=== PATIENT | female | born 1950 | race Caucasian/White ===

== ENCOUNTER → 2017-01-17 | Outpatient (CLI) | payer MEDICARE, OTHER ==
--- NOTE | 2017-01-17 19:02 | WOMENS IMAGING REPORT ---
EXAM DESCRIPTION: 3D SCREENING MAMMO BILAT COMPLETED DATE/TIME: 01/17/2017 2:42 pm REASON FOR STUDY: ROUTINE SCREENING; Z12.31 COMPARISON: No previous are available for comparison TECHNIQUE: Standard craniocaudal and mediolateral oblique views of each breast recorded using digita l acquisition and breast tomosynthesis. LIMITATIONS: None. FINDINGS: RIGHT BREAST MASSES: No suspicious masses. CALCIFICATIONS: No new or suspicious calcifications. ARCHITECTURAL DISTORTION: None. DEVELOPING DENSITY: None. ASYMMETRY: Asymmetrically dense tissue is present at the right breast 6 o'clock position for which ad ditional cone compression views, right breast 90 mediolateral view and right breast ultrasound are r ecommended for followup. OTHER: No other significant findings. LEFT BREAST MASSES: No suspicious masses. CALCIFICATIONS: No new or suspicious calcifications. ARCHITECTURAL DISTORTION: None. DEVELOPING DENSITY: None. ASYMMETRY: None noted. OTHER: No other significant findings. Read with the assistance of CAD. .[facility] - R2 Cenova Version 1.3 .[facility] Imaging - R2 Cenova Version 1.3 .[facility] - R2 Cenova Version 2.4 .[facility] - R2 Cenova Version 2.4 .[facility] - R2 Corrugator Version 9.2 IMPRESSION: No mammographic/ tomosynthesis evidence for malignancy left breast. On the right side, asymmetrically dense tissue is present at the 6 o'clock position for which additio nal diagnostic mammograms and ultrasound are required for followup BREAST DENSITY: c. The breasts are heterogeneously dense, which may obscure small masses. BIRAD: 0 Incomplete: Needs Additional Imaging Evaluation and/or prior Mammograms for Comparison. RECOMMENDATION: RECOMMENDED FOLLOW-UP: Diagnostic right breast mammograms and ultrasound The patient will be contacted for additional imaging. COMMENT: The patient has been notified of the results by letter per [place] requirements. Additional no tification policies are in place for contacting patient with suspicious or incomplete findings. Quality ID #[id number]: The [employer] recommends an annual screening mammogram for women aged 40 years or over. This facility utilizes a reminder system to ensure that all patients receive reminder letters, and/or direct phone calls for appointments. This includes reminders for routine scr eening mammograms, diagnostic mammograms, or other Breast Imaging Interventions when appropriate. Th is patient will be placed in the appropriate reminder system. The [employer] (ACR) has developed recommendations for screening MRI of the breast s in certain patient populations, to be used in conjunction with mammography. Breast MRI surveillanc e may be appropriate for women with more than 20% lifetime risk of developing breast cancer as deter mined by genetic testing, significant family history of the disease, or history of mantle radiation f or Hodgkins Disease. ACR Practice Guidelines 2008. DBT Technology DBT is a type of tomographic mammography. With conventional mammography, overlapping breast tissue ma y make lesions difficult to detect, even with good compression. DBT uses an x-ray tube that rotates a round the breast, taking images at different angles. These images are then combined to create thin sl ices of the breast that the radiologist can view as a 3D reconstruction. The [employer] unit can perform full-field digital mammograms (2D imaging); or DBT (3D imaging); or both, in a combination mode that quickly performs both the mammogram and the tomosynthesis scan while the breast is still compressed. RS 6045F: Fluoroscopic imaging is not utilized for breast tomosynthesis. TECHNICAL DOCUMENTATION: FINDING NUMBER: (1) ASSESSMENT: (1) JOB ID: [id number] [employer]- All Rights Reserved
== END ==
LOC: WI 14:21
PROVIDERS: ATTEND Nurse Practitioner
DX: Z12.31 Encounter for screening mammogram for malignant neoplasm of breast (principal)
CPT/HCPCS: 77063; G0202; 77067

== ENCOUNTER → 2017-02-07 | Outpatient (CLI) | payer MEDICARE, OTHER ==
--- NOTE | 2017-02-07 18:28 | WOMENS IMAGING REPORT ---
EXAM DESCRIPTION: RIGHT DIAGNOSTIC MAMMO W/CAD; U/S BREAST UNILAT LIMITED COMPLETED DATE/TIME: 02/07/2017 8:22 am; 02/07/2017 8:56 am REASON FOR STUDY: ABNORMAL FINDINGS; R92.2; ASYMMETRY RIGHT BREAST; R92.2 R92.2 INCONCLUSIVE MAMMOG BERT COMPARISON: 01/17/2017 TECHNIQUE: 90 mediolateral view, compression magnification craniocaudal and 90 mediolateral images of the breast recorded with digital acquisition. Additional right breast ultrasound was performed LIMITATIONS: None. FINDINGS: BREAST: Right MASSES: In the 6 o'clock position right breast, an irregularly-shaped 5 to 6 mm mammographic nodule w ith associated calcification is present, indeterminate for malignancy. CALCIFICATIONS: No new or suspicious calcifications. ARCHITECTURAL DISTORTION: None. DEVELOPING DENSITY: None. ASYMMETRY: None noted. OTHER: No other significant findings. Read with the assistance of CAD. .[facility] - R2 Cenova Version 1.3 .[facility] Imaging - R2 Cenova Version 1.3 .[facility] - R2 Cenova Version 2.4 .[facility] [place] [facility] - R2 Cenova Version 2.4 .[facility] - R2 Letter [employer] Document Examiner Version 9.2 Right breast ultrasound: Patient was scanned by both myself as well as the technologist. In the right breast 6 o'clock positi on, a 5 to 6 mm solid irregularly-shaped nodule is present with a single calcification. Is indetermi annetta for malignancy, ultrasound-guided core biopsy and post biopsy clip placement of this nodule is r ecommended. This was discussed with the patient, and she agrees to the procedure. Finding was also discussed with Ana M Alvarez, 0930 hours, 02/07/2007 IMPRESSION: A prior chest subcentimeter nodule in the right breast 6 o'clock position (lower outer q uadrant) for which ultrasound-guided core biopsy, post biopsy clip placement, and two-view mammogram is recommended. BREAST DENSITY: c. The breasts are heterogeneously dense, which may obscure small masses. BIRAD: 2 Benign findings. RECOMMENDATION: RECOMMENDED FOLLOW UP: Ultrasound-guided core biopsy right breast nodule 6 o'clock p osition SPECIFIC INTERVENTION/IMAGING/CONSULTATION RECOMMENDED:As above COMMUNICATION:These findings were discussed with the patient and she agrees to the procedure. Iam marte's primary care provider was also notified. COMMENT: The patient has been notified of the results by letter per MQSA requirements. Additional no tification policies are in place for contacting patient with suspicious or incomplete findings. Quality ID #[id number]: The [employer] recommends an annual screening mammogram for women aged 40 years or over. This facility utilizes a reminder system to ensure that all patients receive reminder letters, and/or direct phone calls for appointments. This includes reminders for routine scr eening mammograms, diagnostic mammograms, or other Breast Imaging Interventions when appropriate. Th is patient will be placed in the appropriate reminder system. The [employer] (ACR) has developed recommendations for screening MRI of the breast s in certain patient populations, to be used in conjunction with mammography. Breast MRI surveillanc e may be appropriate for women with more than 20% lifetime risk of developing breast cancer as deter mined by genetic testing, significant family history of the disease, or history of mantle radiation f or Hodgkins Disease. ACR Practice Guidelines 2008. TECHNICAL DOCUMENTATION: FINDING NUMBER: (1) ASSESSMENT: (1) JOB ID: [id number] [employer]- All Rights Reserved
--- NOTE | 2017-02-07 18:28 | WOMENS IMAGING REPORT ---
EXAM DESCRIPTION: RIGHT DIAGNOSTIC MAMMO W/CAD; U/S BREAST UNILAT LIMITED COMPLETED DATE/TIME: 02/07/2017 8:22 am; 02/07/2017 8:56 am REASON FOR STUDY: ABNORMAL FINDINGS; R92.2; ASYMMETRY RIGHT BREAST; R92.2 R92.2 INCONCLUSIVE MAMMOG BERT COMPARISON: 01/17/2017 TECHNIQUE: 90 mediolateral view, compression magnification craniocaudal and 90 mediolateral images of the breast recorded with digital acquisition. Additional right breast ultrasound was performed LIMITATIONS: None. FINDINGS: BREAST: Right MASSES: In the 6 o'clock position right breast, an irregularly-shaped 5 to 6 mm mammographic nodule w ith associated calcification is present, indeterminate for malignancy. CALCIFICATIONS: No new or suspicious calcifications. ARCHITECTURAL DISTORTION: None. DEVELOPING DENSITY: None. ASYMMETRY: None noted. OTHER: No other significant findings. Read with the assistance of CAD. .[facility] - R2 Cenova Version 1.3 .[facility] Imaging - R2 Cenova Version 1.3 .[facility] - R2 Cenova Version 2.4 .[facility] [place] - R2 Cenova Version 2.4 .[facility] - R2 Needle Setter Version 9.2 Right breast ultrasound: Patient was scanned by both myself as well as the technologist. In the right breast 6 o'clock positi on, a 5 to 6 mm solid irregularly-shaped nodule is present with a single calcification. Is indetermi annetta for malignancy, ultrasound-guided core biopsy and post biopsy clip placement of this nodule is r ecommended. This was discussed with the patient, and she agrees to the procedure. Finding was also discussed with Ana M Alvarez, 0930 hours, 02/07/2007 IMPRESSION: A prior chest subcentimeter nodule in the right breast 6 o'clock position (lower outer q uadrant) for which ultrasound-guided core biopsy, post biopsy clip placement, and two-view mammogram is recommended. BREAST DENSITY: c. The breasts are heterogeneously dense, which may obscure small masses. BIRAD: 2 Benign findings. RECOMMENDATION: RECOMMENDED FOLLOW UP: Ultrasound-guided core biopsy right breast nodule 6 o'clock p osition SPECIFIC INTERVENTION/IMAGING/CONSULTATION RECOMMENDED:As above COMMUNICATION:These findings were discussed with the patient and she agrees to the procedure. Iam marte's primary care provider was also notified. COMMENT: The patient has been notified of the results by letter per MQSA requirements. Additional no tification policies are in place for contacting patient with suspicious or incomplete findings. Quality ID #[id number]: The [employer] recommends an annual screening mammogram for women aged 40 years or over. This facility utilizes a reminder system to ensure that all patients receive reminder letters, and/or direct phone calls for appointments. This includes reminders for routine scr eening mammograms, diagnostic mammograms, or other Breast Imaging Interventions when appropriate. Th is patient will be placed in the appropriate reminder system. The [employer] (ACR) has developed recommendations for screening MRI of the breast s in certain patient populations, to be used in conjunction with mammography. Breast MRI surveillanc e may be appropriate for women with more than 20% lifetime risk of developing breast cancer as deter mined by genetic testing, significant family history of the disease, or history of mantle radiation f or Hodgkins Disease. ACR Practice Guidelines 2008. TECHNICAL DOCUMENTATION: FINDING NUMBER: (1) ASSESSMENT: (1) JOB ID: [id number] [employer]- All Rights Reserved
== END ==
LOC: WI 08:14
PROVIDERS: ATTEND Nurse Practitioner
DX: N63.13 Unspecified lump in the right breast, lower outer quadrant (principal)
CPT/HCPCS: 76642; G0206

== ENCOUNTER 2019-02-23 14:07 | Observation (INO) | payer MEDICARE, OTHER ==
[2019-02-23] MEDS ORDERED: NORMAL SALINE 1000 ML 1,000 ML IV ONE (15:14)
--- NOTE | 2019-02-23 16:32 | RADIOLOGY REPORT (SQ) ---
EXAM DESCRIPTION: CT HEAD WITHOUT COMPLETED DATE/TIME: 02/23/2019 4:22 pm REASON FOR STUDY: syncope COMPARISON: None. TECHNIQUE: Axial images acquired through the brain without intravenous contrast. Images reviewed wi th bone, brain and subdural windows. Additional sagittal and coronal reconstructions were generated. Images stored on PACS. All CT scanners at this facility use dose modulation, iterative reconstruction, and/or weight based d osing when appropriate to reduce radiation dose to as low as reasonably achievable (ALARA). [facility]: Dose Right [facility]: CareDose [facility]: Dose Right [facility]: Teradose 4D [facility]: Changers RADIATION DOSE: CT Rad equipment meets quality standard of care and radiation dose reduction techniq ues were employed. CTDIvol: 53.2 mGy. DLP: 1070 mGy-cm. mGy. LIMITATIONS: None. FINDINGS: VENTRICLES: Normal size and contour. CEREBRUM: No masses. No hemorrhage. No midline shift. No evidence for acute infarction. Normal gra y/white matter differentiation. No areas of low density in the white matter. Normal variant cavum se ptum pellucidum. CEREBELLUM: No masses. No hemorrhage. No alteration of density. No evidence for acute infarction. EXTRAAXIAL SPACES: No fluid collections. No masses. ORBITS AND GLOBE: No intra- or extraconal masses. Normal contour of globe without masses. CALVARIUM: No fracture. PARANASAL SINUSES: No fluid or mucosal thickening. SOFT TISSUES: No mass or hematoma. OTHER: No other significant finding. IMPRESSION: NORMAL BRAIN CT WITHOUT CONTRAST. EVIDENCE OF ACUTE STROKE: NO. COMMENT: Quality ID # [id number]: Final reports with documentation of one or more dose reduction techniques (e.g., Automated exposure control, adjustment of the mA and/or kV according to patient size, use of iterative reconstruction technique) TECHNICAL DOCUMENTATION: JOB ID: [id number] [employer]- All Rights Reserved Reading location - IP/workstation name: [email or web address]
[2019-02-23 16:51] LABS: ABSOLUTE LYMPHOCYTES (AUTO) 0.9 10^3/uL (0.5-4.7); ABSOLUTE MONOCYTES (AUTO) 0.6 10^3/uL (0.1-1.4); ABSOLUTE NEUT (AUTO) 7.4 10^3/uL (1.7-8.2); BASOPHILS % (AUTO) 0.4 % (0-2); EOSINOPHILS % (AUTO) 0.5 % (0-6); HEMATOCRIT 33.5 % (36.0-47.0); HEMOGLOBIN 11.6 g/dL (12.0-15.5); LYMPHOCYTES % (AUTO) 10.1 % (13-45); MEAN CORPUSCULAR HEMOGLOBIN 32.5 pg (27.0-33.4); MEAN CORPUSCULAR HGB CONC 34.7 g/dL (32.0-36.0); MEAN CORPUSCULAR VOLUME 94 fl (80-97); MONOCYTES % (AUTO) 6.8 % (3-13); PLATELET COUNT 199 10^3/uL (150-450); RED BLOOD COUNT 3.57 10^6/uL (3.72-5.28); RED CELL DISTRIBUTION WIDTH 13.8 % (11.5-14.0); SEGMENTED NEUTROPHILS % (AUTO) 82.2 % (42-78); TOTAL CELLS COUNTED % (AUTO) 100 %
[2019-02-23 17:07] LABS: ALBUMIN 3.8 g/dL (3.5-5.0); ALKALINE PHOSPHATASE 104 U/L (38-126); ANION GAP 10 (5-19); ASPARTATE AMINO TRANSFERASE 32 U/L (14-36); BILIRUBIN,DIRECT 0.1 mg/dL (0.0-0.4); BILIRUBIN,TOTAL 0.6 mg/dL (0.2-1.3); BLOOD UREA NITROGEN 22 mg/dL (7-20); CALCIUM 9.5 mg/dL (8.4-10.2); CARBON DIOXIDE 28 mmol/L (22-30); CHLORIDE 103 mmol/L (98-107); GLUCOSE 89 mg/dL (75-110); POTASSIUM 4.2 mmol/L (3.6-5.0); TOTAL PROTEIN 6.4 g/dL (6.3-8.2)
--- NOTE | 2019-02-23 18:07 | ER Document Report ---
ED Dizziness/Weakness - General Chief Complaint: Syncope Stated Complaint: DIZZINESS Time Seen by Provider: 02/23/19 14:45 Primary Care Provider: TISH FLOYD NP [Primary Care Provider] - Follow up as needed Mode of Arrival: Ambulatory Information source: Patient TRAVEL OUTSIDE OF THE [place] IN LAST 30 DAYS: No - HPI Notes: Patient complains of a syncopal episode. Patient states that today she was raking some leaves in the yard when she began to feel bad. She states that she thought maybe she was hungry so she went inside to get something to eat. She states she sat on the chair while her was getting her some food. states while he was out of the room he heard a loud noise and went in and found the patient on the floor. He said the patient was semi-conscious and remained this way for about 5 to 10 minutes. In addition he states that the patient was clammy and sweaty. Patient has no previous history of similar episodes. She states he had no chest pain or shortness of breath with this episode. The episode of altered mental status was constant while lasted. Nothing made it better or worse. It was moderate to severe. There is no known radiation of symptoms. No vomiting or diarrhea. - Related Data Allergies/Adverse Reactions: Penicillins Allergy (Verified 02/23/19 14:38) Past Medical History - General Information source: Patient - Social History Smoking Status: Never Smoker Frequency of alcohol use: None Drug Abuse: None Family History: Reviewed & Not Pertinent Patient has suicidal ideation: No Patient has homicidal ideation: No - Past Medical History Cardiac Medical History: Reports: Hx Hypercholesterolemia, Hx Hypertension Review of Systems - Review of Systems Constitutional: Malaise, Weakness. denies: Chills, Fever EENT: denies: Blurred vision, Tearing Cardiovascular: denies: Chest pain, Palpitations Respiratory: denies: Cough, Short of breath -: Yes All other systems reviewed and negative Physical Exam - Vital signs Vitals: Pulse Ox 100 02/23/19 14:27 Interpretation: Normal - General General appearance: Appears well, Alert - HEENT Head: Normocephalic, Atraumatic Eyes: Normal Pupils: PERRL - Respiratory Respiratory status: No respiratory distress Chest status: Nontender Breath sounds: Normal Chest palpation: Normal - Cardiovascular Rhythm: Regular Heart sounds: Normal auscultation Murmur: No - Abdominal Inspection: Normal Distension: No distension Bowel sounds: Normal Tenderness: Nontender Organomegaly: No organomegaly - Back Back: Normal, Nontender - Extremities General upper extremity: Normal inspection, Nontender, Normal color, Normal ROM, Normal temperature General lower extremity: Normal inspection, Nontender, Normal color, Normal ROM, Normal temperature, Normal weight bearing. No: Portillo's sign - Neurological Neuro grossly intact: Yes Cognition: Normal Orientation: AAOx4 Jasbir Coma Scale Eye Opening: Spontaneous Flaxton Coma Scale Verbal: Oriented Jasbir Coma Scale Motor: Obeys Commands Flaxton Coma Scale Total: 15 Speech: Normal Motor strength normal: LUE, RUE, LLE, RLE Sensory: Normal - Psychological Associated symptoms: Normal affect, Normal mood - Skin Skin Temperature: Warm Skin Moisture: Dry Skin Color: Normal Course - Vital Signs Vital signs: Temp Pulse Resp BP Pulse Ox 98.0 F 55 L 16 112/59 L 97 02/23/19 14:35 02/23/19 14:35 02/23/19 17:01 02/23/19 17:01 02/23/19 17:01 - Laboratory Result Diagrams: 02/23/19 16:30 02/23/19 16:30 Laboratory results interpreted by me: 02/23/19 02/23/19 16:30 16:30 RBC 3.57 L Hgb 11.6 L Hct 33.5 L Lymph % (Auto) 10.1 L Seg Neutrophils % 82.2 H BUN 22 H Est GFR (MDRD) Non-Af 57 L - Diagnostic Test Radiology reviewed: Image reviewed, Reports reviewed - EKG Interpretation by Ok EKG shows normal: Sinus rhythm Rate: Bradycardia - 57 Rhythm: NSR Partridge/QRS: LBBB Discharge - Discharge Clinical Impression: Syncope and collapse Condition: Fair Disposition: ADMITTED OBSERVATION Admitting Provider: Elana (Hospitalist) - day Unit Admitted: Telemetry Referrals: TISH FLOYD NP [Primary Care Provider] - Follow up as needed
[2019-02-23] MEDS ORDERED: ACETAMINOPHEN 325 MG TABLET PO PRN (18:22)
[2019-02-23] MEDS ORDERED: ONDANSETRON HCL INJ/PF 4 MG/2 ML SDV IV PRN (18:22)
[2019-02-23] MEDS ORDERED: ONDANSETRON 4 MG TAB.RAPDIS PO PRN (18:22)
[2019-02-23] MEDS ORDERED: OXYCODONE-ACETAMINOPHEN 5-325 MG TABLET PO PRN (18:22)
--- NOTE | 2019-02-23 18:38 | PDOC H&P ---
History of Present Illness Admission Date/PCP: 02/23/19 18:24 TISH FLOYD NP History of Present Illness: CHIARA LEAHY is a 69 year old female comes into the emergency room for a syncope episode.. Was outside raking leaves today when she came inside and felt a little "lightheaded". She went to drink some water and the next thing you know she fell out on the floor. According the who was there lasted about 10 minutes when she was unresponsive. No seizure activity. This is never happened to the patient before. She denies chest pain or shortness of breath during this episode. She states that about 5 years ago she had a stress test when she lived in [place] but she does not know the results of it. She denies previous cardiac history. Patient did complain of a slight headache prior to all of this. His other medical problems include hypertension and hyperlipidemia. Patient is awake and alert in the emergency room with no complaints. Again she has had no chest pain or shortness of breath during this episode or earlier Past Medical History Cardiac Medical History: Reports: Hyperlipidema, Hypertension Social History Smoking Status: Never Smoker - Advance Directive Resuscitation Status: Full Code Family History Family History: Reviewed & Not Pertinent Parental Family History Reviewed: No Children Family History Reviewed: No Sibling(s) Family History Reviewed.: No Medication/Allergy Allergies/Adverse Reactions: Penicillins Allergy (Verified 02/23/19 14:38) Review of Systems Constitutional: ABSENT: chills, fever(s), headache(s), weight gain, weight loss Cardiovascular: ABSENT: chest pain, dyspnea on exertion, edema, orthropnea, palpitations Respiratory: ABSENT: cough, hemoptysis Neurological: PRESENT: syncope, other - Your slight headache Psychiatric: ABSENT: anxiety, depression, homidical ideation, suicidal ideation Physical Exam Vital Signs: Temp Pulse Resp BP Pulse Ox 98.0 F 55 L 16 112/59 L 97 02/23/19 14:35 02/23/19 14:35 02/23/19 17:01 02/23/19 17:01 02/23/19 17:01 Intake & Output 02/22/19 02/23/19 02/24/19 06:59 06:59 06:59 Intake Total 1000 Balance 1000 Weight 62.9 kg General appearance: PRESENT: no acute distress, well-developed, well-nourished, other - Completely normal exam Respiratory exam: PRESENT: clear to auscultation linda. ABSENT: rales, rhonchi, wheezes Cardiovascular exam: PRESENT: RRR. ABSENT: diastolic murmur, rubs, systolic murmur Neurological exam: PRESENT: alert, awake, oriented to person, oriented to place, oriented to time, oriented to situation, CN II-XII grossly intact. ABSENT: motor sensory deficit Psychiatric exam: PRESENT: appropriate affect, normal mood. ABSENT: homicidal ideation, suicidal ideation Results Laboratory Results: 02/23/19 16:30 02/23/19 16:30 02/23/19 02/23/19 16:30 16:30 WBC 9.0 RBC 3.57 L Hgb 11.6 L Hct 33.5 L MCV 94 MCH 32.5 MCHC 34.7 RDW 13.8 Plt Count 199 Seg Neutrophils % 82.2 H Sodium 140.7 Potassium 4.2 Chloride 103 Carbon Dioxide 28 Anion Gap 10 BUN 22 H Creatinine 0.98 Est GFR ( Amer) > 60 Glucose 89 Calcium 9.5 Total Bilirubin 0.6 AST 32 Alkaline Phosphatase 104 Total Protein 6.4 Albumin 3.8 02/23/19 16:30 Troponin I < 0.012 Impressions: Head CT 02/23/19 15:14 IMPRESSION: NORMAL BRAIN CT WITHOUT CONTRAST. EVIDENCE OF ACUTE STROKE: NO. Assessment and Plan - Diagnosis (1) Hyperlipidemia Is this a current diagnosis for this admission?: Yes (2) Hypertension Is this a current diagnosis for this admission?: Yes (3) Syncope and collapse Is this a current diagnosis for this admission?: Yes - Plan Summary Summary: Will do carotid Dopplers, will do an MRI of the brain, will order troponin x3 CK-MB index x3 check a magnesium check a thyroid. Repeat EKG in the morning. I have consulted cardiology who will see the patient in the morning. Syncopal episode that lasted about 10 minutes at home today after raking leaves earlier - Time Time Spent with patient: 35 or more minutes
[2019-02-23] MEDS: ENOXAPARIN SODIUM INJ 40 MG/0.4 ML DISP.SYRIN SUBCUT SCH (19:38)
[2019-02-23 20:34] LABS: CREATINE KINASE MB 0.65 ng/mL (<4.55)
[2019-02-23 20:37] LABS: TROPONIN I < 0.012 ng/mL
--- NOTE | 2019-02-23 22:22 | RADIOLOGY REPORT (SQ) ---
MR BRAIN WITHOUT IV CONTRAST EXAM DATE: 02/23/2019 12:00 AM IT RISK ADVISOR HISTORY: Syncope. COMPARISON: None. TECHNIQUE: Multisequence, multiplanar MR imaging of the brain was performed without the administration of intravenous gadolinium. FINDINGS: Scattered areas of T2/FLAIR hyperintense foci are seen in the supratentorial white matter, likely representing chronic microvascular ischemia. There is no acute infarction, intracranial hemorrhage, extra-axial fluid collection, or mass. The brainstem, posterior fossa, and cervicomedullary junction are preserved. The intravascular flow voids are preserved. The orbits are unremarkable. No abnormality of the skull base or calvarium is seen. The paranasal sinuses are clear. IMPRESSION: 1. No acute infarct. 2. Senescent changes with chronic microvascular ischemia.
[2019-02-23] MEDS: FAMOTIDINE 20 MG TABLET PO SCH (22:24)
[2019-02-23 23:02] LABS: APPEARANCE,URINE CLEAR; BILIRUBIN,URINE NEGATIVE (NEGATIVE); COLOR,URINE YELLOW; GLUCOSE, URINE NEGATIVE (NEGATIVE); KETONES,URINE NEGATIVE (NEGATIVE); LEUKOCYTE ESTERASE,URINE NEGATIVE (NEGATIVE); NITRITE,URINE NEGATIVE (NEGATIVE); PROTEIN,URINE NEGATIVE (NEGATIVE); URINE SPECIFIC GRAVITY 1.005; UROBILINOGEN,URINE NEGATIVE mg/dL (<2.0)
--- NOTE | 2019-02-24 00:30 | EKG REPORT ---
SEVERITY:- ABNORMAL ECG - SINUS RHYTHM LEFT BUNDLE BRANCH BLOCK : Confirmed by: Anabel Serna 24-Feb-2019 00:29:56
[2019-02-24 03:11] LABS: CREATINE KINASE MB 0.63 ng/mL (<4.55)
[2019-02-24 03:21] LABS: TROPONIN I < 0.012 ng/mL
[2019-02-24] MEDS: FAMOTIDINE 20 MG TABLET PO SCH ×2 (09:56→21:14)
[2019-02-24] MEDS: ENOXAPARIN SODIUM INJ 40 MG/0.4 ML DISP.SYRIN SUBCUT SCH (09:56)
--- NOTE | 2019-02-24 10:01 | RADIOLOGY REPORT (SQ) ---
EXAM DESCRIPTION: CAROTID DOPPLER COMPLETED DATE/TIME: 02/24/2019 9:47 am REASON FOR STUDY: syncope COMPARISON: None. TECHNIQUE: Grayscale ultrasound, Doppler velocity and spectra, and color Doppler images acquired of the extra-cranial carotid and vertebral arteries. Images stored on PACS. LIMITATIONS: None. FINDINGS: RIGHT CAROTID CCA Velocities: Within normal limits. ICA Velocities Peak systolic 82 cm/s. End diastolic 26 cm/s. Proximal ICA/CCA peak systolic ratio 0.8. Spectra normal. No significant plaque. LEFT CAROTID CCA Velocities: Within normal limits. ICA Velocities Peak systolic 145 cm/s. End diastolic 38 cm/s. Proximal ICA/CCA peak systolic ratio 1.3. Spectra normal. No significant plaque. VERTEBRAL ARTERIES: Antegrade flow. Normal waveforms. SUBCLAVIAN ARTERIES: No finding. OTHER: No other significant finding. IMPRESSION: NO HEMODYNAMICALLY SIGNIFICANT STENOSIS. COMMENT: Quality ID #[id number]: Velocity criteria are extrapolated from the diameter data as defined by t jennifer Society of Radiologists in Ultrasound Consensus Conference. Radiology 2003: 229; 340-346. TECHNICAL DOCUMENTATION: JOB ID: [id number] [employer]- All Rights Reserved Reading location - IP/workstation name: [email or web address]
--- NOTE | 2019-02-24 10:58 | PDOC CONSULTATION ---
Consultation Consult Date: 02/24/19 Provider Consulted: AYAN SINGH Consult reason:: Syncope History of Present Illness Admission Date/PCP: 02/23/19 18:24 TISH FLOYD NP Patient complains of: Syncope History of Present Illness: CHIARA LEAHY is a 69 year old female With medical history significant for systemic hypertension as well as dyslipidemia who presents with an episode of syncope. Per the patient had rake some leaves and then come back to the house and was about to have a meal when she had the syncopal episode. He was a witness. He reports some inv oluntary movements on one side of the body which he remembers as the left. There is no report of foaming at the mouth or seizure type activity. She was incoherent for a while. There is reported stress test done in [place] approximately 5 years ago. Results are not available. Since admission patient's EKG was noted to have left bundle branch block. She does not endorse any chest pain. It is not clear if there is a prior EKG that demonstrates a left bundle branch block. At the time of my evaluation patient feels back to her baseline. Past Medical History Cardiac Medical History: Reports: Hyperlipidema, Hypertension Psychiatric Medical History: Denies: Depression Social History Smoking Status: Never Smoker Electronic Cigarette use?: No Hx Prescription Drug Abuse: No - Advance Directive Resuscitation Status: Full Code Family History Family History: Reviewed & Not Pertinent Parental Family History Reviewed: Yes - No pertinent family history is apparent. No familial illnesses Children Family History Reviewed: NA Sibling(s) Family History Reviewed.: NA Medication/Allergy Home Medications: Aspirin [Ecotrin 81 mg EC Tablet] 81 mg PO DAILY 02/23/19 Atorvastatin Calcium [Lipitor 40 mg Tablet] 40 mg PO DAILY 02/23/19 Losartan Potassium [Cozaar 50 mg Tablet] 50 mg PO DAILY 02/23/19 Allergies/Adverse Reactions: Penicillins Allergy (Verified 02/23/19 14:38) Review of Systems Cardiovascular: PRESENT: as per HPI, chest pain Neurological: PRESENT: as per HPI, syncope Physical Exam Vital Signs: Temp Pulse Resp BP Pulse Ox 97.8 F 72 16 132/67 H 99 02/24/19 07:14 02/24/19 07:14 02/24/19 07:14 02/24/19 07:14 02/24/19 07:14 Intake & Output 02/23/19 02/24/19 02/25/19 06:59 06:59 06:59 Intake Total 1322 Output Total 200 Balance 1122 Weight 68.8 kg General appearance: PRESENT: cooperative Head exam: PRESENT: atraumatic, normocephalic Eye exam: PRESENT: EOMI Mouth exam: PRESENT: moist Respiratory exam: PRESENT: unlabored Cardiovascular exam: PRESENT: RRR, +S1, +S2 Pulses: PRESENT: normal radial pulses GI/Abdominal exam: PRESENT: soft Rectal exam: PRESENT: deferred Neurological exam: PRESENT: alert, awake, oriented to person, oriented to place, oriented to time, oriented to situation Psychiatric exam: PRESENT: appropriate affect Skin exam: PRESENT: intact Results Laboratory Results: 02/23/19 16:30 02/23/19 16:30 02/23/19 02/23/19 02/23/19 16:30 16:30 19:54 WBC 9.0 RBC 3.57 L Hgb 11.6 L Hct 33.5 L MCV 94 MCH 32.5 MCHC 34.7 RDW 13.8 Plt Count 199 Seg Neutrophils % 82.2 H Sodium 140.7 Potassium 4.2 Chloride 103 Carbon Dioxide 28 Anion Gap 10 BUN 22 H Creatinine 0.98 Est GFR ( Amer) > 60 Glucose 89 Calcium 9.5 Total Bilirubin 0.6 AST 32 Alkaline Phosphatase 104 Total Protein 6.4 Albumin 3.8 TSH 0.21 L Urine Color Urine Appearance Urine pH Ur Specific [place] Urine Protein Urine Glucose (UA) Urine Ketones Urine Blood Urine Nitrite Ur Leukocyte Esterase Urine WBC (Auto) 02/23/19 22:42 WBC RBC Hgb Hct MCV MCH MCHC RDW Plt Count Seg Neutrophils % Sodium Potassium Chloride Carbon Dioxide Anion Gap BUN Creatinine Est GFR ( Amer) Glucose Calcium Total Bilirubin AST Alkaline Phosphatase Total Protein Albumin TSH Urine Color YELLOW Urine Appearance CLEAR Urine pH 5.0 Ur Specific [place] 1.005 Urine Protein NEGATIVE Urine Glucose (UA) NEGATIVE Urine Ketones NEGATIVE Urine Blood NEGATIVE Urine Nitrite NEGATIVE Ur Leukocyte Esterase NEGATIVE Urine WBC (Auto) 0 02/23/19 02/23/19 02/24/19 16:30 19:54 02:08 CK-MB (CK-2) 0.65 0.63 Troponin I < 0.012 < 0.012 < 0.012 EKG Comments: Lead EKG independently viewed by me shows sinus rhythm with left bundle branch block. No prior EKG for comparison. Impressions: Head MRI 02/23/19 00:00 IMPRESSION: 1. No acute infarct. 2. Senescent changes with chronic microvascular ischemia. Head CT 02/23/19 15:14 IMPRESSION: NORMAL BRAIN CT WITHOUT CONTRAST. EVIDENCE OF ACUTE STROKE: NO. Carotid Doppler Study 02/24/19 00:00 IMPRESSION: NO HEMODYNAMICALLY SIGNIFICANT STENOSIS. Assessment & Plan - Diagnosis (1) Hyperlipidemia Is this a current diagnosis for this admission?: Yes Plan: Statin (2) Hypertension Is this a current diagnosis for this admission?: Yes Plan: Avoid added salt in the diet Continue medications for systemic hypertension Patient does not appear to be volume depleted at the moment. (3) Syncope and collapse Is this a current diagnosis for this admission?: Yes Plan: Syncope of unclear etiology. No carotid stenosis is apparent 1. We will obtain transthoracic echocardiogram to exclude valvular heart disease as cause of problem. 2. Chest x-ray 3. EKG shows left bundle branch block. Given absence of chest pain and hemodynamic changes this is likely a chronic finding however there is no EKG to compare to. 4. Given presence of manifest conduction disease and syncope without any apparent reason long-term cardiac monitoring is indicated. This can be arranged as an outpatient. Presently telemetry so far has not demonstrated any bradycardia arrhythmias to account for an episode of syncope. - Notes Notes: We will check echocardiogram We will check a chest x-ray May need long-term cardiac rhythm monitoring to further evaluate for cardiac causes of syncope. EKG presently has manifest conduction disease with left bundle branch block.
[2019-02-24 11:46] LABS: CREATINE KINASE MB 0.64 ng/mL (<4.55)
[2019-02-24 11:50] LABS: TROPONIN I < 0.012 ng/mL
--- NOTE | 2019-02-24 13:00 | PDOC PROGRESS REPORT ---
Subjective Progress Note for:: 02/24/19 Subjective:: Patient is feeling well. Denies shortness of breath chest pain, cough, lightheadedness or dizziness. Reason For Visit: SYNCOPE,HYPERTENSION,HYPERLIPIDEMIA,LEFT BUNDLE Physical Exam Vital Signs: Temp Pulse Resp BP Pulse Ox 98.2 F 79 16 123/80 96 02/24/19 10:55 02/24/19 10:55 02/24/19 10:55 02/24/19 10:55 02/24/19 10:55 Intake & Output 02/23/19 02/24/19 02/25/19 06:59 06:59 06:59 Intake Total 1322 Output Total 200 Balance 1122 Weight 68.8 kg General appearance: PRESENT: no acute distress, cooperative Neck exam: ABSENT: JVD Respiratory exam: PRESENT: clear to auscultation linda, symmetrical, unlabored. ABSENT: tachypnea, wheezes Cardiovascular exam: PRESENT: RRR, +S1, +S2. ABSENT: tachycardia GI/Abdominal exam: PRESENT: normal bowel sounds, soft. ABSENT: rebound, rigid, tenderness Neurological exam: PRESENT: alert, awake, oriented to person, oriented to place, oriented to time, oriented to situation Results Laboratory Results: 02/23/19 16:30 02/23/19 16:30 02/23/19 02/23/19 02/23/19 16:30 16:30 19:54 WBC 9.0 RBC 3.57 L Hgb 11.6 L Hct 33.5 L MCV 94 MCH 32.5 MCHC 34.7 RDW 13.8 Plt Count 199 Seg Neutrophils % 82.2 H Sodium 140.7 Potassium 4.2 Chloride 103 Carbon Dioxide 28 Anion Gap 10 BUN 22 H Creatinine 0.98 Est GFR ( Amer) > 60 Glucose 89 Calcium 9.5 Magnesium Total Bilirubin 0.6 AST 32 Alkaline Phosphatase 104 Total Protein 6.4 Albumin 3.8 TSH 0.21 L Urine Color Urine Appearance Urine pH Ur Specific [place] Urine Protein Urine Glucose (UA) Urine Ketones Urine Blood Urine Nitrite Ur Leukocyte Esterase Urine WBC (Auto) 02/23/19 02/24/19 22:42 10:44 WBC RBC Hgb Hct MCV MCH MCHC RDW Plt Count Seg Neutrophils % Sodium Potassium Chloride Carbon Dioxide Anion Gap BUN Creatinine Est GFR ( Amer) Glucose Calcium Magnesium 2.2 Total Bilirubin AST Alkaline Phosphatase Total Protein Albumin TSH Urine Color YELLOW Urine Appearance CLEAR Urine pH 5.0 Ur Specific [place] 1.005 Urine Protein NEGATIVE Urine Glucose (UA) NEGATIVE Urine Ketones NEGATIVE Urine Blood NEGATIVE Urine Nitrite NEGATIVE Ur Leukocyte Esterase NEGATIVE Urine WBC (Auto) 0 02/23/19 02/23/19 02/24/19 16:30 19:54 02:08 CK-MB (CK-2) 0.65 0.63 Troponin I < 0.012 < 0.012 < 0.012 02/24/19 10:44 CK-MB (CK-2) 0.64 Troponin I < 0.012 Impressions: Head MRI 02/23/19 00:00 IMPRESSION: 1. No acute infarct. 2. Senescent changes with chronic microvascular ischemia. Head CT 02/23/19 15:14 IMPRESSION: NORMAL BRAIN CT WITHOUT CONTRAST. EVIDENCE OF ACUTE STROKE: NO. Carotid Doppler Study 02/24/19 00:00 IMPRESSION: NO HEMODYNAMICALLY SIGNIFICANT STENOSIS. Assessment and Plan - Diagnosis (1) Syncope and collapse Is this a current diagnosis for this admission?: Yes Plan: Potential culprit may have been vasovagal syncope. Also possibility for hypovolemia/dehydration versus cardiac conduction abnormality though there is no clear evidence to prove this at this time. Patient was reported to be hypotensive on the field when initially evaluated by EMS and first documented heart rate in the ER was 55 Carotid Dopplers have been negative LBBB seen on EKG likely had no consequence of current condition Head MRI was negative for any ischemic event or masses. I have placed an order for an echocardiogram to evaluate cardiac structure If echo is negative, patient will be discharged to follow-up in outpatient with Dr. Baires for a mcfp event monitor to investigate for occult arrhythmias (2) Hyperlipidemia Is this a current diagnosis for this admission?: Yes (3) Hypertension Is this a current diagnosis for this admission?: Yes Plan: I will hold off on resuming losartan as of now given blood pressures while inpatient have been acceptable (4) LBBB (left bundle branch block) Is this a current diagnosis for this admission?: Yes Plan: This is likely a chronic finding and likely unrelated to patient's syncope. Unfortunately we do not have a baseline EKG but patient has no evidence for ACS. - Time Time Spent with patient: 15-24 minutes
--- NOTE | 2019-02-24 14:17 | RADIOLOGY REPORT (SQ) ---
EXAM DESCRIPTION: CHEST SINGLE VIEW COMPLETED DATE/TIME: 02/24/2019 1:56 pm REASON FOR STUDY: syncope COMPARISON: None. EXAM PARAMETERS: NUMBER OF VIEWS: One view. TECHNIQUE: Single frontal radiographic view of the chest acquired. RADIATION DOSE: NA LIMITATIONS: None. FINDINGS: LUNGS AND PLEURA: No opacities, masses or pneumothorax. No pleural effusion. MEDIASTINUM AND HILAR STRUCTURES: No masses. Contour normal. HEART AND VASCULAR STRUCTURES: Heart normal in size. Normal vasculature. BONES: No acute findings. HARDWARE: None in the chest. OTHER: No other significant finding. IMPRESSION: NO ACUTE RADIOGRAPHIC FINDING IN THE CHEST. TECHNICAL DOCUMENTATION: JOB ID: [id number] [employer]- All Rights Reserved Reading location - IP/workstation name: [email or web address]
--- NOTE | 2019-02-24 14:26 | EKG REPORT ---
SEVERITY:- ABNORMAL ECG - SINUS RHYTHM LEFT BUNDLE BRANCH BLOCK : Confirmed by: Anabel Serna 24-Feb-2019 14:25:35
--- NOTE | 2019-02-24 18:58 | XCELERA REPORT ---
[address] [address] Transthoracic Echocardiogram Report Name: CHIARA LEAHY Age: 69 yrs Gender: Female : 1950 Patient Status: Inpatient Patient Location: [address] [place], [place] [address] Study Date: 02/24/2019 01:18 PM History: Syncope Height: 63 in Weight: 151 lb BSA: 1.7 m2 Procedure: A complete two-dimensional transthoracic echocardiogram was performed (2D, M-mode, spectral and color flow Doppler). The study was technically adequate with some images being suboptimal in quality. Reason For Study: syncope Ordering Physician: ALEJA PALOMARES Performed By: Heaven Krishnamurthy Interpretation Summary The study was technically adequate with some images being suboptimal in quality. Left ventricular systolic function is normal. The Ejection Fraction estimate is 60-65% The right ventricular systolic function is normal. There is a trace amount of mitral regurgitation There is no aortic valve stenosis There is a trace or physiologic amount of tricuspid regurgitation Doppler findings do not suggest pulmonary hypertension. There is no pericardial effusion. MMode/2D Measurements & Calculations RVDd: 2.8 cm LVIDd: 4.7 cm FS: 39.5 % Ao root diam: 2.8 cm IVSd: 0.73 cm LVIDs: 2.8 cm EDV(Teich): 100.1 ml Ao root area: 6.4 cm2 LVPWd: 0.84 cm ESV(Teich): 30.0 ml EF(Teich): 70.0 % Doppler Measurements & Calculations MV E max naseem: MV dec slope: Ao V2 max: LV V1 max P.4 cm/sec 635.1 cm/sec2 156.9 cm/sec 4.0 mmHg MV A max naseem: MV dec time: 0.17 secAo max PG: LV V1 max: 119.8 cm/sec 9.9 mmHg 100.1 cm/sec MV E/A: 0.92 PA V2 max: 93.7 cm/sec PA max P.5 mmHg Left Ventricle The left ventricle is normal in size. There is normal left ventricular wall thickness. Left ventricular systolic function is normal. The Ejection Fraction estimate is 60-65%. Doppler measurements suggest impaired left ventricular relaxation, which is associated with grade I/IV or mild diastolic dysfunction. Septal motion is consistent with conduction abnormality. Right Ventricle The right ventricle is normal in size and function. The right ventricular systolic function is normal. Atria The right atrium is normal. The left atrium is borderline dilated. The interatrial septum is intact with no evidence for an atrial septal defect. Mitral Valve The mitral valve is grossly normal. There is no mitral valve stenosis. There is a trace amount of mitral regurgitation. Aortic Valve The aortic valve is sclerotic, but shows no functional abnormality. The aortic valve is trileaflet. The aortic valve opens well. There is no aortic valve stenosis. No aortic regurgitation is present. Tricuspid Valve The tricuspid valve is normal in structure and function. There is no tricuspid stenosis. There is a trace or physiologic amount of tricuspid regurgitation. Doppler findings do not suggest pulmonary hypertension. Pulmonic Valve The pulmonic valve is not well visualized. There is a trace or physiologic amount of pulmonic regurgitation. Great Vessels The aortic root is normal size. Effusions There is no pericardial effusion. : ALEJA PALOMARES Anil
[2019-02-25 08:29] VITALS: BP 107/66
--- NOTE | 2019-02-25 10:34 | PDOC DISCHARGE SUMMARY ---
Impression - Admit/DC Date/PCP Admission Date/Primary Care Provider: 02/23/19 18:24 TISH FLOYD NP Discharge Date: 02/25/19 - Discharge Diagnosis (1) Syncope and collapse Is this a current diagnosis for this admission?: Yes (2) Hyperlipidemia Is this a current diagnosis for this admission?: Yes (3) Hypertension Is this a current diagnosis for this admission?: Yes (4) LBBB (left bundle branch block) Is this a current diagnosis for this admission?: Yes - Assessment Summary: Patient was admitted for evaluation of syncope. She had presented after experiencing a 10-minute episode of syncope preceded by lightheadedness and associated with diaphoresis. At the time patient was raking leaves in her lawn. It was witnessed by her . Patient reports that when the ambulance arrived her blood pressure was in the 80s systolic. On arrival in the ER, her heart rate was noted to be 57. EKG revealed left bundle branch block. Unfortunately there was no prior EKGs for comparison. Patient did not endorse any chest pain or shortness of breath or any symptoms suspicious of ACS. Troponins were negative. MRI of the brain was performed which showed no evidence of stroke or acute findings. Patient was placed on a snack steward which showed no evidence of arrhythmia. Carotid ultrasound was performed which showed patent blood vessels with no significant stenosis. Cardiology was also involved in the case and patient was seen by Dr. Jarod Baires. As part of patient's evaluation, patient had an echocardiogram performed which showed no evidence of valvular or significant structural disease. Patient has been asymptomatic throughout his stay. At this point, though not fully clear as to what caused her syncopal episode but the leading suspicion is vasovagal syncope especially evidenced by her low blood pressure and low heart rate on initial presentation. Patient has been instructed to be aware of preceding symptoms and to lay down flat with her legs elevated if she starts to experience this preceding symptoms. Dr. Baires has evaluated patient and feels that she would need a follow-up for heart rate monitoring and possible loop recorder in the outpatient clinic to investigate for any occult's bradycardia arrhythmias or other arrhythmias that could precipitate such symptoms. Patient's blood pressure medication losartan has been held as blood pressures have been normal while in the hospital off losartan especially in light of her hypotension on initial presentation. She has been instructed that she can reduce taking half a pill of the 50 mg daily if her blood pressure should start to exceed 140/90 and that she should follow-up with her primary care physician regarding when to resume this. - Additional Information Resuscitation Status: Full Code Discharge Diet: Regular Discharge Activity: Activity As Tolerated Referrals: TISH FLOYD NP [Primary Care Provider] - Follow up as needed (LEFT MESSAGE WITH PROVIDER WITH THE PATIENTS INFO FOR FOLLOW UP APPT) Home Medications: Aspirin [Ecotrin 81 mg EC Tablet] 81 mg PO DAILY 02/23/19 Atorvastatin Calcium [Lipitor 40 mg Tablet] 40 mg PO DAILY 02/23/19 History of Present Illiness History of Present Illness: CIHARA LEAHY is a 69 year old female comes into the emergency room for a syncope episode.. Was outside raking leaves today when she came inside and felt a little "lightheaded". She went to drink some water and the next thing you know she fell out on the floor. According the who was there lasted about 10 minutes when she was unresponsive. No seizure activity. This is never happened to the patient before. She denies chest pain or shortness of breath during this episode. She states that about 5 years ago she had a stress test when she lived in [place] but she does not know the results of it. She denies previous cardiac history. Patient did complain of a slight headache prior to all of this. His other medical problems include hypertension and hyperlipidemia. Patient is awake and alert in the emergency room with no complaints. Again she has had no chest pain or shortness of breath during this episode or earlier Physical Exam Vital Signs: Temp Pulse Resp BP Pulse Ox 98.1 F 73 16 107/66 98 02/25/19 08:27 02/25/19 08:27 02/25/19 08:27 02/25/19 08:27 02/25/19 08:27 Intake & Output 02/24/19 02/25/19 02/26/19 06:59 06:59 06:59 Intake Total 1322 698 Output Total 200 Balance 1122 698 Weight 68.8 kg 67.1 kg General appearance: PRESENT: no acute distress, cooperative Neck exam: ABSENT: JVD Respiratory exam: PRESENT: clear to auscultation linda Cardiovascular exam: PRESENT: RRR, +S1, +S2. ABSENT: diastolic murmur, systolic murmur, tachycardia Musculoskeletal exam: PRESENT: ambulatory Neurological exam: PRESENT: alert, awake. ABSENT: altered Results Laboratory Results: WBC 9.0 10^3/uL (4.0-10.5) 02/23/19 16:30 RBC 3.57 10^6/uL (3.72-5.28) L 02/23/19 16:30 Hgb 11.6 g/dL (12.0-15.5) L 02/23/19 16:30 Hct 33.5 % (36.0-47.0) L 02/23/19 16:30 MCV 94 fl (80-97) 02/23/19 16:30 MCH 32.5 pg (27.0-33.4) 02/23/19 16:30 MCHC 34.7 g/dL (32.0-36.0) 02/23/19 16:30 RDW 13.8 % (11.5-14.0) 02/23/19 16:30 Plt Count 199 10^3/uL (150-450) 02/23/19 16:30 Lymph % (Auto) 10.1 % (13-45) L 02/23/19 16:30 [place] % (Auto) 6.8 % (3-13) 02/23/19 16:30 Eos % (Auto) 0.5 % (0-6) 02/23/19 16:30 Baso % (Auto) 0.4 % (0-2) 02/23/19 16:30 Absolute Neuts (auto) 7.4 10^3/uL (1.7-8.2) 02/23/19 16:30 Absolute Lymphs (auto) 0.9 10^3/uL (0.5-4.7) 02/23/19 16:30 Absolute Monos (auto) 0.6 10^3/uL (0.1-1.4) 02/23/19 16:30 Absolute Eos (auto) 0.0 10^3/uL (0.0-0.6) 02/23/19 16:30 Absolute Basos (auto) 0.0 10^3/uL (0.0-0.2) 02/23/19 16:30 Seg Neutrophils % 82.2 % (42-78) H 02/23/19 16:30 Sodium 140.7 mmol/L (137-145) 02/23/19 16:30 Potassium 4.2 mmol/L (3.6-5.0) 02/23/19 16:30 Chloride 103 mmol/L (98-107) 02/23/19 16:30 Carbon Dioxide 28 mmol/L (22-30) 02/23/19 16:30 Anion Gap 10 (5-19) 02/23/19 16:30 BUN 22 mg/dL (7-20) H 02/23/19 16:30 Creatinine 0.98 mg/dL (0.52-1.25) 02/23/19 16:30 Est GFR ( Amer) > 60 (>60) 02/23/19 16:30 Est GFR (MDRD) Non-Af 57 (>60) L 02/23/19 16:30 Glucose 89 mg/dL (75-110) 02/23/19 16:30 Calcium 9.5 mg/dL (8.4-10.2) 02/23/19 16:30 Magnesium 2.2 mg/dL (1.6-2.3) 02/24/19 10:44 Total Bilirubin 0.6 mg/dL (0.2-1.3) 02/23/19 16:30 Direct Bilirubin 0.1 mg/dL (0.0-0.4) 02/23/19 16:30 Neonat Total Bilirubin Not Reportable 02/23/19 16:30 Neonat Direct Bilirubin Not Reportable 02/23/19 16:30 Neonat Indirect Bili Not Reportable 02/23/19 16:30 AST 32 U/L (14-36) 02/23/19 16:30 ALT 35 U/L (<35) 02/23/19 16:30 Alkaline Phosphatase 104 U/L (38-126) 02/23/19 16:30 CK-MB (CK-2) 0.64 ng/mL (<4.55) 02/24/19 10:44 Troponin I < 0.012 ng/mL 02/24/19 10:44 Total Protein 6.4 g/dL (6.3-8.2) 02/23/19 16:30 Albumin 3.8 g/dL (3.5-5.0) 02/23/19 16:30 TSH 0.21 uIU/mL (0.47-4.68) L 02/23/19 19:54 Urine Color YELLOW 02/23/19 22:42 Urine Appearance CLEAR 02/23/19 22:42 Urine pH 5.0 (5.0-9.0) 02/23/19 22:42 Ur Specific [place] 1.005 02/23/19 22:42 Urine Protein NEGATIVE mg/dL (NEGATIVE) 02/23/19 22:42 Urine Glucose (UA) NEGATIVE mg/dL (NEGATIVE) 02/23/19 22:42 Urine Ketones NEGATIVE mg/dL (NEGATIVE) 02/23/19 22:42 Urine Blood NEGATIVE (NEGATIVE) 02/23/19 22:42 Urine Nitrite NEGATIVE (NEGATIVE) 02/23/19 22:42 Urine Bilirubin NEGATIVE (NEGATIVE) 02/23/19 22:42 Urine Urobilinogen NEGATIVE mg/dL (<2.0) 02/23/19 22:42 Ur Leukocyte Esterase NEGATIVE (NEGATIVE) 02/23/19 22:42 Urine WBC (Auto) 0 /HPF 02/23/19 22:42 Squamous Epi Cells Auto <1 /HPF 02/23/19 22:42 Urine Mucus (Auto) RARE /LPF 02/23/19 22:42 Urine Ascorbic Acid NEGATIVE (NEGATIVE) 02/23/19 22:42 02/23/19 02/23/19 02/24/19 16:30 19:54 02:08 CK-MB (CK-2) 0.65 0.63 Troponin I < 0.012 < 0.012 < 0.012 02/24/19 10:44 CK-MB (CK-2) 0.64 Troponin I < 0.012 Impressions: Head MRI 02/23/19 00:00 IMPRESSION: 1. No acute infarct. 2. Senescent changes with chronic microvascular ischemia. Head CT 02/23/19 15:14 IMPRESSION: NORMAL BRAIN CT WITHOUT CONTRAST. EVIDENCE OF ACUTE STROKE: NO. Carotid Doppler Study 02/24/19 00:00 IMPRESSION: NO HEMODYNAMICALLY SIGNIFICANT STENOSIS. Chest X-Ray 02/24/19 00:00 IMPRESSION: NO ACUTE RADIOGRAPHIC FINDING IN THE CHEST. Plan Time Spent: Less than 30 Minutes Stroke Is this a Stroke Patient?: No Acute Heart Failure - Is this a Heart Failure Patient?: No
== END 2019-02-25 09:00 | disposition home or self-care (01) ==
LOC: ER 14:07 → EH 18:24 → 4N 20:05
PROVIDERS: ADMIT Family Medicine; ATTEND Family Medicine
DX: R55 Syncope and collapse (principal); E78.5 Hyperlipidemia, unspecified; I10 Essential (primary) hypertension; I44.7 Left bundle-branch block, unspecified; I95.9 Hypotension, unspecified; R51 Headache; R00.1 Bradycardia, unspecified; Z79.899 Other long term (current) drug therapy; Z79.82 Long term (current) use of aspirin
CPT/HCPCS: 93005 ×2; 99285; 96372; 96360; 36415 ×2; 82553 ×2; 83735; 84443; 85025; 80053; 81001; 84484 ×2; 93306; 93880; 70551; 71045; 70450; 93010 ×2; G0378 ×3; A9270 ×2; J1650 ×2; J7030

== ENCOUNTER 2019-12-12 17:58 | Emergency (ER) | payer MEDICARE, OTHER ==
[2019-12-12] MEDS ORDERED: DOXYCYCLINE HYCLATE 100 MG TABLET PO ONE (18:27)
[2019-12-12] MEDS ORDERED: METRONIDAZOLE 500 MG TABLET PO ONE (18:28)
[2019-12-12] MEDS ORDERED: LIDOCAINE 1%/EPINEPHRINE INJ 20 ML VIAL INJ ONE (18:29)
--- NOTE | 2019-12-12 18:40 | ER Document Report ---
ED Animal Bite - General Chief Complaint: Dog Bite Stated Complaint: HAND INJURY Time Seen by Provider: 12/12/19 18:07 Primary Care Provider: TISH FLOYD NP [Primary Care Provider] - Follow up as needed Notes: HPI: Patient is a 69-year-old female that was bit by her daughter's dog. This happened prior to arrival. Patient was bit to the right humerus, forearm, and hand. Tetanus is up-to-date. Patient is allergic to amoxicillin. Patient denies any pain or injury to any other location. EMS stated they provided fentanyl which then caused the patient to drop her blood pressure. They then provided to push dose epinephrine dosages. Patient did not lose consciousness and had no chest pain. Blood pressure as recorded here. ROS: See HPI All other systems have been reviewed and are otherwise negative Reviewed vital signs and nursing note as charted by RN. PHYSICAL EXAM: CONSTITUTIONAL: Alert and oriented and responds appropriately to questions. Well-appearing; well-nourished HEAD: Normocephalic; atraumatic CARD: Regular rate and rhythm; no murmurs; symmetric distal pulses RESP: Normal chest excursion without splinting or tachypnea; breath sounds clear and equal bilaterally; no wheezes, no rhonchi, no rales ABD/GI: Normal bowel sounds; non-distended; soft, non-tender BACK: The back appears normal and is non-tender to palpation EXT: Patient has a small laceration to the dorsal aspect of the right hand. Lacerations also present with puncture bite wounds to the forearm and humerus. No obvious swelling or discharge currently SKIN: See above NEURO: CN 2-12 intact; 5/5 bilateral upper and lower extremity strength with sensation intact to light touch PSYCH: The patient's mood and manner are appropriate. Grooming and personal hygiene are appropriate. TRAVEL OUTSIDE OF THE [place] IN LAST 30 DAYS: No - Related Data Allergies/Adverse Reactions: Penicillins Allergy (Verified 02/23/19 14:38) Past Medical History - Social History Smoking Status: Never Smoker Chew tobacco use (# tins/day): No Frequency of alcohol use: None Drug Abuse: None Family History: Reviewed & Not Pertinent - Past Medical History Cardiac Medical History: Reports: Hx Hypercholesterolemia, Hx Hypertension Psychiatric Medical History: Denies: Hx Depression Physical Exam - Vital signs Vitals: Temp 97.8 F 12/12/19 17:58 Course - Re-evaluation Re-evalutation: 12/12/19 18:39 Given the above history and physical we will place the patient on the monitor after the EMS story as dictated above. Patient denies any and all chest pain or shortness of breath. Given the patient's hand bites, the patient's tetanus is up-to-date. The dog is well known to the family and is at the daughter's house. We will x-ray to evaluate for any obvious teeth and if this is unremarkable we will irrigate extensively and then suture loosely appropriately and start the patient on a course of doxycycline and Flagyl given her allergy to amoxicillin. 12/12/19 19:23 X-ray showed no obvious foreign bodies. We have irrigated the lacerations with 3 L of normal saline. Given that some of them are gaping with some fat tissue present, I will attempt to suture loosely only the ones that require suturing. We will start the patient on doxycycline and Flagyl with strict return precautions. 12/12/19 20:22 Extensive cleaning and suturing as recorded. I did call and speak directly to the orthopedic surgeon. He does not believe reduction is necessary. He would like me to place the patient in a volar splint with antibiotics and strict return precautions and follow-up in his clinic. This is been performed. I was able to check the splint after placement showing good neurovascular status. - Vital Signs Vital signs: Temp Pulse Resp BP Pulse Ox 97.8 F 93/51 L 99 12/12/19 17:58 12/12/19 19:31 12/12/19 19:31 Procedures - Laceration/Wound Repair Right Arm Wound length (cm): 19 - 19 cm total, see below Wound's Depth, Shape: Linear Laceration pre-procedure: Sterile PPE donned, Chloraprep applied Anesthetic type: 1% Lidocaine w/epi Volume Anesthetic (mLs): 15 Wound explored: No foreign body removed Irrigated w/ Saline (mLs): 3,000 Wound Debrided: Extensive Wound Repaired With: Sutures Suture Size/Type: 4:0 Number of Sutures: 20 Layer Closure?: No Post-procedure wound care: Sterile dressing applied Post-procedure NV exam normal: Yes Complications: No Notes: 12/12/19 20:20 There was 13 different bite raymundo lacerations requiring suturing. The length and number of sutures from the proximal humerus to the hand are listed as below. 2cm/2 sutures 2cm/2 1cm/1 1cm/1 3cm/3 1cm/1 1cm/1 1cm/1 3cm/3 1cm/1 1cm/1 2cm/2 1cm/1 Discharge - Discharge Clinical Impression: Dog bite of arm Qualifiers: Encounter type: initial encounter Laterality: right Qualified Code(s): S41.151A - Open bite of right upper arm, initial encounter; W54.0XXA - Bitten by dog, initial encounter Fracture of metacarpal of right hand, open Qualifiers: Encounter type: initial encounter Metacarpal bone: fourth Metacarpal location: neck Fracture alignment: nondisplaced Qualified Code(s): S62.364B - Nondisplaced fracture of neck of fourth metacarpal bone, right hand, initial encounter for open fracture Condition: Good Disposition: HOME, SELF-CARE Additional Instructions: Come back immediately for any increased pain, swelling, redness, discharge, fever, weakness or numbness, discoloration of the arm, or any other acute problems. Please take the antibiotics as prescribed and please follow-up with your primary care physician as discussed. You can return in 7 days for suture removal. Please apply bacitracin to the wounds twice daily and change the dressing. Please make sure that you call the orthopedic surgeon Dr. Ramirez and tell the office that you were seen in the emergency department you were told to follow-up by calling on Saturday. Prescriptions: Doxycycline Hyclate 100 mg PO BID #14 tablet. Metronidazole [Flagyl 500 mg Tablet] 500 mg PO TID #21 tablet Referrals: TISH FLOYD NP [Primary Care Provider] - Follow up as needed BRIAN RAMIREZ MD [ACTIVE STAFF] - Follow up as needed
[2019-12-12] MEDS ORDERED: DIPH/PERTUSS(ACELL)/TETANUS VAC/PF 0.5 ML SYR (>=10YO) IM ONE (19:14)
--- NOTE | 2019-12-12 19:31 | RADIOLOGY REPORT (SQ) ---
EXAM DESCRIPTION: HUMERUS RIGHT IMAGES COMPLETED DATE/TIME: 12/12/2019 6:01 pm REASON FOR STUDY: Eval after dog bite. COMPARISON: None. NUMBER OF VIEWS: Two views. TECHNIQUE: Two radiographic images were acquired of the right humerus to include elbow and shoulder in at least one projection. LIMITATIONS: None. FINDINGS: MINERALIZATION: Osteopenia. BONES: No acute fracture or dislocation. No worrisome bone lesions. SOFT TISSUES: No obvious swelling or foreign body. OTHER: No other significant finding. IMPRESSION: Moderate osteopenia. No radiographic abnormality of the right upper arm. TECHNICAL DOCUMENTATION: JOB ID: [id number] [employer]- All Rights Reserved Reading location - IP/workstation name: [email or web address]
--- NOTE | 2019-12-12 19:32 | RADIOLOGY REPORT (SQ) ---
EXAM DESCRIPTION: FOREARM RIGHT IMAGES COMPLETED DATE/TIME: 12/12/2019 6:01 pm REASON FOR STUDY: Eval after dog bite. COMPARISON: None. NUMBER OF VIEWS: Two views. TECHNIQUE: Two radiographic images acquired of the right forearm, including elbow and wrist in at le ast one projection. LIMITATIONS: None. FINDINGS: MINERALIZATION: Osteopenia. BONES: Plate fixation distal radius. No acute fracture. No worrisome bone lesions. SOFT TISSUES: Subcutaneous gas probably secondary to laceration/dog bites. No radiopaque foreign bod y. OTHER: No other significant finding. IMPRESSION: Laceration/dog bites in the forearm soft tissues. No radiopaque foreign body. No acute fracture. TECHNICAL DOCUMENTATION: JOB ID: [id number] 2010 [employer]- All Rights Reserved Reading location - IP/workstation name: [email or web address]
--- NOTE | 2019-12-12 19:34 | RADIOLOGY REPORT (SQ) ---
EXAM DESCRIPTION: HAND RIGHT 3 VIEWS IMAGES COMPLETED DATE/TIME: 12/12/2019 6:01 pm REASON FOR STUDY: Eval after dog bite. COMPARISON: None. EXAM PARAMETERS: NUMBER OF VIEWS: Three views. TECHNIQUE: AP, lateral and oblique radiographic images acquired of the right hand. LIMITATIONS: None. FINDINGS: MINERALIZATION: Osteopenia. BONES: Plate fixation distal radius partially visualized. Acute oblique extra-articular fracture of t he distal metaphysis 4th digit metacarpal. Mild dorsal angulation of the distal fracture fragment. 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 JOINTS: Soft tissue swelling at the 4th and 5th metacarpals. SOFT TISSUES: There is subcutaneous gas at the dorsal aspect of the 5th digit. No radiopaque foreign body. OTHER: No other significant finding. IMPRESSION: 1. Acute mildly angulated fracture of the distal metaphysis 4th digit metacarpal. 2. Subcutaneous gas consistent with lacerations overlying the 5th digit metacarpals. TECHNICAL DOCUMENTATION: JOB ID: [id number] 2010 [employer]- All Rights Reserved Reading location - IP/workstation name: [email or web address]
[2019-12-12] MEDS ORDERED: NORMAL SALINE 1000 ML 1,000 ML IV ONE (21:20)
[2019-12-12 21:56] VITALS: BP 111/54
== END 2019-12-12 21:56 | disposition home or self-care (01) ==
LOC: ER 17:58
DX: S62.364 Nondisplaced fracture of neck of fourth metacarpal bone, right hand (principal); S41.151A Open bite of right upper arm, initial encounter; W54.0XXA Bitten by dog, initial encounter; Z23 Encounter for immunization; E78.00 Pure hypercholesterolemia, unspecified; I10 Essential (primary) hypertension
CPT/HCPCS: 99284; 96360; 90471; 73090; 73130; 73060; 90715; 12035; A9270 ×2; J3490; J7030

== ENCOUNTER 2019-12-18 09:02 | Day surgery (SDC) | payer MEDICARE, OTHER ==
[~2019-12-18 09:02] MED LIST: CEFAZOLIN 2 GM/D5W RTU 2 GM/50 ML RTUPB IV ONE; CEFAZOLIN 2 GM/D5W RTU 2 GM/50 ML RTUPB IV PRN; DEXAMETHASONE SOD PHOSPHATE INJ 4 MG/1 ML VIAL ONE; FENTANYL CITRATE INJ/PF 100 MCG/2 ML AMPUL ONE; MIDAZOLAM 2 MG/2 ML INJ ONE; ONDANSETRON HCL INJ/PF 4 MG/2 ML SDV ONE; PROPOFOL INJ 200 MG/20 ML VIAL IV ONE
[2019-12-18] MEDS ORDERED: BUPIVACAINE HCL 0.5 % INJ/PF 30 ML SDV ONE (10:16)
[2019-12-18] MEDS ORDERED: FENTANYL CITRATE INJ/PF 100 MCG/2 ML AMPUL IV PRN ×3 (11:02)
[2019-12-18] MEDS ORDERED: MEPERIDINE HCL/PF INJ 25 MG/1 ML DISP.SYRIN IV PRN (11:02)
[2019-12-18] MEDS ORDERED: MORPHINE SULFATE 10 MG/ML INJ IV PRN (11:02)
[2019-12-18] MEDS ORDERED: DIPHENHYDRAMINE HCL 50 MG/ML VIAL IV PRN (11:02)
[2019-12-18] MEDS ORDERED: OXYCODONE-ACETAMINOPHEN 5-325 MG TABLET PO PRN (11:02)
[2019-12-18] MEDS ORDERED: PROMETHAZINE HCL INJ 25 MG/1 ML VIAL IV PRN ×2 (11:02)
[2019-12-18] MEDS ORDERED: EPHEDRINE SULFATE INJ 50 MG/1 ML AMPULE ONE (11:14)
--- NOTE | 2019-12-18 11:17 | Operative Report ---
Operative Report DATE OF SURGERY: 12/18/19 PREOPERATIVE DIAGNOSIS: Displaced right ring metacarpal neck fracture POSTOPERATIVE DIAGNOSIS: Displaced right ring metacarpal neck fracture OPERATION: Open reduction internal fixation right ring metacarpal neck fracture with intramedullary compression screw SURGEON: BRIAN LOPEZ ANESTHESIA: GA COMPLICATIONS: None ESTIMATED BLOOD LOSS: Minimal PROCEDURE: Indications for procedure: The patient is a 69-year-old woman who was attacked by her daughter's dog. This attack resulted in a displaced fracture of the right ring metacarpal neck. Description of procedure: Following the induction of a general anesthetic and administration of 2 g of Ancef, the patient was positioned supine on the oper ating room table. All bony prominences were padded. The right upper extremity sterilely prepped with ChloraPrep and draped in standard fashion. The arm was exsanguinated the tourniquet inflated 250 mmHg. Under intensification manipulation of the fracture was performed to restore angular and rotational alignment. A 1 cm incision was then made over the metacarpal head region. A small incision was made just ulnar to the extensor tendon. Guidewire was placed in the dorsal most aspect of the head and down the shaft. Image desiccation confirmed anatomic reduction of the fracture and correct placement of the wire. Starting reamer was then used for the Serina 3.0 fixed dose compression screw. A 36 mm headless compression screw was then placed over the guidewire and buried beneath the head. The wound was then irrigated. The skin was reapproximated with 4-0 nylon suture. A bulky dressing was then applied. The patient tolerated procedure well without complication was brought recovery in stable condition.
[2019-12-18 13:06] VITALS: BP 142/88
[2019-12-18] MEDS ORDERED: GLYCOPYRROLATE 1 MG/5 ML VIAL ONE (13:45)
--- NOTE | 2019-12-18 14:47 | RADIOLOGY REPORT (SQ) ---
EXAM DESCRIPTION: HAND RIGHT 3 VIEWS; NO CHG FLUORO IMAGES COMPLETED DATE/TIME: 12/18/2019 2:21 pm REASON FOR STUDY: ORIF RIGHT METACARPAL ASSITED WITH FLUORO IN OR S62.334A DISP FX OF NECK OF FOURT H METACARPAL BONE, RIGHT HERNANDEZ COMPARISON: Right hand films 12/12/2019 FLUOROSCOPY TIME: 9 seconds 3 digital fluoroscopic images saved to PACS. TECHNIQUE: Intra-operative images acquired during surgical procedure to evaluate progress. NUMBER OF IMAGES: 3 digital fluoroscopic images LIMITATIONS: None. FINDINGS: 3 intra procedural images during ORIF comminuted fracture distal right 4th metacarpal. Go od alignment. Please see the operative report for further details IMPRESSION: IMAGE(S) OBTAINED DURING PROCEDURE. COMMENT: Quality ID [id number]: Final reports for procedures using fluoroscopy that document radiation exp osure indices, or exposure time and number of fluorographic images (if radiation exposure indices are not available) Please consult full operative report of the attending physician for description of the procedure. TECHNICAL DOCUMENTATION: JOB ID: [id number] 2010 [employer]- All Rights Reserved Reading location - IP/workstation name: [email or web address]
--- NOTE | 2019-12-18 14:47 | RADIOLOGY REPORT (SQ) ---
EXAM DESCRIPTION: HAND RIGHT 3 VIEWS; NO CHG FLUORO IMAGES COMPLETED DATE/TIME: 12/18/2019 2:21 pm REASON FOR STUDY: ORIF RIGHT METACARPAL ASSITED WITH FLUORO IN OR S62.334A DISP FX OF NECK OF FOURT H METACARPAL BONE, RIGHT HERNANDEZ COMPARISON: Right hand films 12/12/2019 FLUOROSCOPY TIME: 9 seconds 3 digital fluoroscopic images saved to PACS. TECHNIQUE: Intra-operative images acquired during surgical procedure to evaluate progress. NUMBER OF IMAGES: 3 digital fluoroscopic images LIMITATIONS: None. FINDINGS: 3 intra procedural images during ORIF comminuted fracture distal right 4th metacarpal. Go od alignment. Please see the operative report for further details IMPRESSION: IMAGE(S) OBTAINED DURING PROCEDURE. COMMENT: Quality ID [id number]: Final reports for procedures using fluoroscopy that document radiation exp osure indices, or exposure time and number of fluorographic images (if radiation exposure indices are not available) Please consult full operative report of the attending physician for description of the procedure. TECHNICAL DOCUMENTATION: JOB ID: [id number] 2010 [employer]- All Rights Reserved Reading location - IP/workstation name: [email or web address]
== END 2019-12-18 12:55 | disposition home or self-care (01) ==
LOC: OROUT 09:02
PROVIDERS: ATTEND Orthopaedic Surgery
DX: S62.334A Displaced fracture of neck of fourth metacarpal bone, right hand, initial encounter for closed fracture (principal); W54.0XXA Bitten by dog, initial encounter; E78.5 Hyperlipidemia, unspecified; I10 Essential (primary) hypertension; E78.00 Pure hypercholesterolemia, unspecified
CPT/HCPCS: 73130; 01830; 26615; C1713 ×2; J2250; J3490 ×3; J1100; J3010; J2405; J2704; J0690

== ENCOUNTER 2019-12-24 08:40 | Emergency (ER) | payer MEDICARE, OTHER ==
[2019-12-24 08:46] VITALS: BP 143/92
--- NOTE | 2019-12-24 11:00 | ER Document Report ---
HPI - HPI Patient complains to provider of: Suture removal Time Seen by Provider: 12/24/19 10:33 Pain Level: 2 Notes: 69-year-old female to the emergency department with complaints of suture removal to her right arm. She states approximately 10 days ago she was bitten by her daughter's dog. She had to have careful dog bite repaired. She states that she saw Dr. Ramirez for her hand. She is supposed to just have the sutures to her forearm and upper arm removed today and she will see Dr. Ramirez on December 28 for follow-up for removal of sutures to her hand. She states she is completed antibiotics. She states that she has not seen any discharge from the bite. She states that she is continued to have some swelling in the hand and it still little bit painful. She has not been taking anything for this. - ROS Systems Reviewed and Negative: Yes All other systems reviewed and negative - CONSTITUTIONAL Constitutional: DENIES: Fever, Chills - EENT EENT: DENIES: Sore Throat, Ear Pain - NEURO Neurology: DENIES: Headache - CARDIOVASCULAR Cardiovascular: DENIES: Chest pain - RESPIRATORY Respiratory: DENIES: Trouble Breathing, Coughing - GASTROINTESTINAL Gastrointestinal: DENIES: Abdominal Pain, Nausea, Patient vomiting, Diarrhea - MUSCULOSKELETAL Musculoskeletal: REPORTS: Extremity pain Notes: Right hand pain with some swelling from dog bite - DERM Skin Color: Normal Skin Problems: Laceration - Multiple dog bites to the right arm Past Medical History - General Information source: Patient, Relative - - Social History Smoking Status: Never Smoker Chew tobacco use (# tins/day): No Frequency of alcohol use: None Drug Abuse: None Family History: Reviewed & Not Pertinent Patient has homicidal ideation: No - Past Medical History Cardiac Medical History: Reports: Hx Hypercholesterolemia, Hx Hypertension Denies: Hx Coronary Artery Disease, Hx Heart Attack Pulmonary Medical History: Denies: Hx Asthma, Hx Bronchitis, Hx COPD, Hx Pneumonia Neurological Medical History: Denies: Hx Cerebrovascular Accident, Hx Seizures Musculoskeletal Medical History: Denies Hx Arthritis Psychiatric Medical History: Denies: Hx Depression Past Surgical History: Reports: Hx Orthopedic Surgery - right hand Vertical Provider Document - CONSTITUTIONAL General Appearance: WD/WN, No Apparent Distress - INFECTION CONTROL TRAVEL OUTSIDE OF THE [place] IN LAST 30 DAYS: No - HEENT HEENT: Atraumatic, Normocephalic, PERRLA - NECK Neck: Normal Inspection, Supple - RESPIRATORY Respiratory: Breath Sounds Normal, No Respiratory Distress. negative: Rales, Rhonchi, Wheezing - CARDIOVASCULAR Cardiovascular: Regular Rate, Regular Rhythm, No Murmur - GI/ABDOMEN Gastrointestinal: Abdomen Soft, Abdomen Non-Tender, No Organomegaly - MUSCULOSKELETAL/EXTREMETIES Musculoskeletal/Extremeties: Tender Notes: There is tenderness palpation to the right hand with multiple dog lives with parents. The hand is extensively bruised but there is ecchymosis is yellowing. The right hand is edematous on the dorsal aspect. The dog bites himself look well. Please see Derm for further discussion of dog bite nontender to palpation over the right wrist elbow and shoulder. patient has full range of motion of bilateral upper extremity against resistance in flexion and extension. Radial pulses are intact and equal. Cap refill is less than 2 seconds in all fingers. - NEURO Level of Consciousness: Awake, Alert, Appropriate Motor/Sensory: No Motor Deficit, No Sensory Deficit - DERM Integumentary: Warm Notes: There are multiple dog bites with sutures to the right forearm and upper arm. There are fairly sutures to the dorsum of the right hand. Sutures were removed from the forearm and upper arm. Approximately 15 sutures were removed. There were areas where there were larger bites and Steri-Strips were applied to these areas. All wounds went very well. None were edematous, erythematous, purulent drainage. The back of the hand is edematous and tender to palpation. Importantly, the dog bites to the hand appear to be healing very well. There is no erythema, warmth, discharge despite edema. The hand is bruised from his dog bites suspect that the edema is mainly from contusion of the hand. Course - Re-evaluation Re-evalutation: 12/24/19 10:57 15 sutures - Vital Signs Vital signs: Temp Pulse Resp BP Pulse Ox 98.0 F 96 18 143/92 H 100 12/24/19 09:05 12/24/19 08:45 12/24/19 08:45 12/24/19 08:45 12/24/19 08:45 Discharge - Discharge Clinical Impression: Visit for suture removal, Visit for wound check Condition: Stable Disposition: HOME, SELF-CARE Instructions: Care of Steri-Strip Closure ([facility]) Additional Instructions: Please allow Steri-Strips to fall off by themselves. Keep other wound clean and dry. Follow-up with Dr. Ramirez on the for removal of stitches to your right hand. Return if any worsening symptoms such as worsening pain, fevers, drainage from the sites. Prescriptions: Mupirocin [Bactroban 2% Ointment 22 gm] 1 applic TP TID #1 tube Meloxicam [Mobic] 7.5 mg PO DAILY #10 tablet Referrals: TISH FLOYD NP [Primary Care Provider] - Follow up in 1 week BRIAN RAMIREZ MD [ACTIVE STAFF] - 12/29/19 (for suture removal to the hand)
== END 2019-12-24 11:15 | disposition home or self-care (01) ==
LOC: ER 08:40
DX: S51.811D Laceration without foreign body of right forearm, subsequent encounter (principal); S41.111D Laceration without foreign body of right upper arm, subsequent encounter; W54.0XXD Bitten by dog, subsequent encounter; E78.00 Pure hypercholesterolemia, unspecified; I10 Essential (primary) hypertension